=== PATIENT | female | born 1970 | race Caucasian/White ===

== ENCOUNTER 2020-05-02 09:16 | Outpatient (CLI) | payer BC, SELFPAY ==
--- NOTE | 2020-05-02 09:24 | MM_ITS ---
WS: [id number] Exam: [place] [id number] Date/Time of Exam: 05/02/2020 9:35 AM Reason For Exam: SCREENING VIEWS: MLO and CC views both breasts. Comparison made with prior exam of 11/16/2016. Findings: There was no sign of mass, architectural distortion or suspicious calcification in either breast. Fa tty MM/[place] [id number] Impression: BI-RADS: 2-Benign FOLLOW-UP: 1 Year Follow-up This mammogram was also analyzed by the Computer Aided Detection System R2 Imag e [employer]. BI-RADS 2 -- benign findings
== END 2020-05-02 09:17 | disposition home or self-care (01) ==
LOC: RADSHAW 09:19
PROVIDERS: PCP Internal Medicine; Visit Provider Internal Medicine
DX: Z12.31 Encounter for screening mammogram for malignant neoplasm of breast (principal)
CPT/HCPCS: 77067

== ENCOUNTER 2023-05-06 08:38 | Outpatient (CLI) | payer OTHER, SELFPAY ==
--- NOTE | 2023-05-06 08:47 | MM_ITS ---
WS: [id number] BILATERAL SCREENING DIGITAL TOMOSYNTHESIS MAMMOGRAM WITH CAD HISTORY: SCREENING COMPARISON: 05/02/2020 and 12/09/2017 Bilateral CC and MLO views with tomosynthesis and synthetic mammography submitted. Computer aided det ection analyzed. Breast composition: There are scattered areas of fibroglandular density. No suspicious masses, microc alcifications or architectural distortion. Numerous benign calcifications in each breast. IMPRESSION: MM/[place] [id number] BI-RADS: 2-Benign FOLLOW UP: 1 Year Follow-up
== END 2023-05-06 08:39 | disposition home or self-care (01) ==
LOC: RAD 08:39
PROVIDERS: PCP Internal Medicine; Visit Provider Internal Medicine
DX: Z12.31 Encounter for screening mammogram for malignant neoplasm of breast (principal)
CPT/HCPCS: 77063; 77067

== ENCOUNTER 2025-02-26 10:08 | Day surgery (SDC) | payer OTHER, SELFPAY ==
[2025-02-26 10:59] VITALS: BP 123/70; PULSE 84; RESP 17; TEMP 36.4; O2SAT 91
--- NOTE | 2025-02-26 11:20 | W.PM.OPSFHP ---
Same Day Surgery H&P Indication for Procedure/HPI DATE OF PROCEDURE: February 26, 2025 CHIEF COMPLAINT/INDICATIONFOR SURGICAL PROCEDURE: Right hip degenerative joint disease PREOP DIAGNOSIS: Right hip degenerative joint disease PLANNED PROCEDURE: Operation Date: 02/26/25 12:25 Proposed Procedures p RIGHT hip fluoroscopy guided cortisone injection(Right) - Estiven Calles, DO Medications/Allergies* Home Medications ?Medication ?Instructions ?Recorded ?Confirmed ?Type lisinopril 10 mg tablet 10 mg PO DAILY 11/21/21 02/25/25 History meloxicam 15 mg tablet 15 mg PO DAILY 01/13/25 02/25/25 History semaglutide 2 mg/dose (8 mg/3 mL) 2 mg SUBCUT .Q7D 01/13/25 02/25/25 History subcutaneous pen injector (Ozempic) levothyroxine 175 mcg tablet 175 mcg PO DAILY 02/25/25 02/26/25 History (Synthroid) Allergies/Adverse Reactions Allergy/AdvReac Type Severity Reaction Status Date / Time Penicillins Allergy Intermediate ALGY-Rash Verified 01/13/25 08:27 Pertinent History/Comorbid Conditions* Social History Smoking and tobacco/nicotine status: never used tobacco/nicotine Pertinent Exam Findings alert, oriented x 3, operative site marked and procedure specific exam findings please refer to detail orthopedic examination on 01/13/2025 listed below: Right Hip Exam: -No pain in Lumbar Spine -No Tenderness to palpation over SI Joint -No significant TTP over right lateral troch bursa -Tenderness to palpation over groin -Pain with hip flexion and internal rotator -ROM: IR 10 degrees, ER 15 degrees -Negative straight leg raise -Normal knee ROM -Tight IT band Recommendations Risks and benefits of procedure reviewed and Patient/family agree to proceed Surgery/Procedure today Other Plans: Plan to proceed to the OR today for right hip fluoroscopic guided cortisone injection. Patient understands in's and outs procedure risk benefits complication alternatives surgery through shared decision making patient like to proceed with surgical invention all questions answered at this time. Coding Level of Care Code Acute Code for Shabnamaleta Madrigal
[2025-02-26 11:29] VITALS: BP 157/98; PULSE 81; RESP 16; O2SAT 98
[2025-02-26 11:31] VITALS: BP 158/87; PULSE 79; RESP 16; O2SAT 97
[2025-02-26 11:34] VITALS: BP 154/87; PULSE 80; RESP 16; O2SAT 96
[2025-02-26 11:36] VITALS: BP 151/89; PULSE 78; RESP 16; O2SAT 96
[2025-02-26 11:39] VITALS: BP 140/91; PULSE 86; RESP 16; O2SAT 98
--- NOTE | 2025-02-26 11:44 | P.OP_ITS ---
Operative Report Date of procedure: February 26, 2025 Pre-op diagnosis: Right hip DJD Post-op diagnosis: Right hip DJD Post-op findings: See operative report narrative Procedure done: Right hip fluoroscopic guided cortisone injection Surgeon: Estiven Calles DO Anesthesia: None Estimated blood loss: 0 Complications: None Condition: stable Disposition: same day Brief History: Patient is a 54-year-old female with severe right hip degenerative joint disease. At this point in time given her body habitus she is not a good candidate for total joint replacement talked about her treatment options in detail in the office and plan to proceed with a right hip fluoroscopy guided injection unfortunately given her body habitus our bed in the procedural suite would not hold this patient and as a result we had patient scheduled in the OR or we had an adequate radiolucent table to accommodate for bit patient. She understood the ins and outs of the procedure the risk benefits complication alternatives procedure through shared decision making elects proceed with a right hip fluoroscopic guided injection. All questions answered. Procedure: Right hip fluoroscopic guided cortisone injection ?Patient presented to the office for Right hip fluoroscopic guided injection was seen in the preprocedure holding area consent was reviewed and signed with patient was agreeable and understands risk benefits complications alternatives with injection fluoroscopic guided procedure at this point in time he was taken back to the procedural suite fluoroscopic imaging of the Right hip was then taken the Right hip was then prepped and draped in standard orthopedic fashion. Appropriate 1 cc of contrast was drawn up to confirm appropriate positioning. 3 cc of lidocaine and 2 mL of Kenalog was then subsequently drawn up sterilely. Once utilizing fluoroscopic imaging focalized the Right hip. Once in appropriate positioning skin was anesthetized with ethyl chloride and spinal needle was then subsequently placed into the intra-articular hip joint just past the intertrochanteric line and then subsequently injected contrast which confirmed appropriate positioning and then subsequently injected the Right hip corticost eroid injection, injected under standard withdrawal and inject technique, injection at ease of flow confirming the well. Needle was withdrawn patient tolerated procedure without any issues this was then appropriately dressed and clean with Band-Aid patient was then taken to the post procedure suite and recovered without any issues. Patient will follow-up with me in the office in roughly 3 months. Patient understands agrees with current plan. All questions answered.
--- NOTE | 2025-02-26 11:44 | W.PM.BPON ---
Date of Procedure: 02/26/2025 Surgeon: Estiven Calles DO Oceanographer Geological(s): None Procedure(s) performed: Right hip fluoroscopic guided cortisone injection Findings of the procedure(s): Patient underwent procedure as planned without issues or complications taken to recovery in stable condition Estimated blood loss: 0 mL Specimen(s) removed: None Post-operative diagnosis: Right hip DJD
--- NOTE | 2025-02-26 11:49 | XR_ITS ---
WS: [id number] C-ARM RADIOGRAPHS RIGHT HIP; 3 IMAGES HISTORY: OR PICS COMPARISON: None available. Intraoperative imaging during RIGHT hip procedure. XR/XR hip RT 2-3V wo/w pel* [id number] IMPRESSION: Intraoperative imaging during orthopedic procedure.
--- NOTE | 2025-02-26 11:51 | SUR.OPER ---
omnipaque 300mgI/mL- 3 mL used lidocaine 1% 200mg/20mL- 3 mL used triamcinolone acetonide 40mg/mL-2mL used All mixed and injected by Dr. Calles
== END 2025-02-26 12:05 | disposition home or self-care (01) ==
PROVIDERS: PCP Internal Medicine; Visit Provider Student in an Organized Health Care Education/Training Program
PROC: 3E0U3GC Introduction of Other Therapeutic Substance into Joints, Percutaneous Approach (ICD-10-PCS; CPT 20610; principal; 2025-02-26 12:15)
DX: M16.11 Unilateral primary osteoarthritis, right hip (principal)
CPT/HCPCS: 20610; 73502; 76000